=== PATIENT | male | born 1975 | race African-American/Black ===

== ENCOUNTER 2016-09-21 12:50 | Emergency (ER) | payer OTHER ==
[~2016-09-21] VITALS: Ht 182.9 cm; Wt 83.2 kg
[~2016-09-21 12:50] MED LIST: CIPRO500 MG PO
[2016-09-21] MEDS ORDERED: ASCORBIC ACID500 M3 PO (13:01)
[2016-09-21 13:30] LABS: HEMATOCRIT 38.8 % (38.0-50.0); MCH 29.6 PG (29.0-34.0); MCHC 34.5 G/DL (30.0-36.0); MCV 85.8 FL (86-99); RBC DIS.WIDTH-CV 12.8 % (11.8-14.6); RBC DIS.WIDTH-SD 40.1 % (39-53); RED BLOOD COUNT 4.52 M/uL (4.00-5.50); WHITE BLOOD COUNT 7.2 K/uL (4.1-10.2)
[2016-09-21 13:41] LABS: CHLORIDE 103 mEq/L (99-109); POTASSIUM 3.8 mEq/L (3.7-5.4); SODIUM 139 mEq/L (136-147)
[2016-09-21 13:42] LABS: GLUCOSE 99 mg/dL (70-99)
[2016-09-21 13:44] LABS: ANION GAP 10 MEQ/L (2-14); TOTAL BILIRUBIN 0.9 mg/dL (0.0-1.0)
[2016-09-21 13:46] LABS: ALKALINE PHOSPHATASE 78 IU/L (3-129); GFR ESTIMATE (CALCULATED) > 59 mL/min/
[2016-09-21 13:47] LABS: ADD MIUA? YES; BILIRUBIN NEGATIVE; BLOOD NEGATIVE; COLOR YELLOW ((YELLOW)); GLUCOSE (STRIP) NEGATIVE; KETONES NEGATIVE; LEUKOCYTES TRACE; NITRITE NEGATIVE; PROTEIN (STRIP) NEGATIVE; SPECIFIC GRAVITY 1.013 (1.000-1.030); UROBILINOGEN 0.2 MG/DL (0.2-1.0)
[2016-09-21 13:47] LABS: UREA NITROGEN (BUN) 20 mg/dL (9-23)
[2016-09-21 13:49] LABS: LIPASE 11 U/L (1.0-51.0)
[2016-09-21 13:56] LABS: BACTERIA RARE /HPF; EPITHELIAL CELLS RARE /HPF; MUCUS TRACE /LPF; RED BLOOD CELLS 0-5 /HPF (0-5); UCUL ADDED? NO; WHITE BLOOD CELLS 0-5 /HPF (0-5)
[2016-09-21 14:16] LABS: TROP-I INTERPRETATION NEGATIVE; TROPONIN-I 0.03 ng/mL (0.0-0.30)
[2016-09-21 14:30] LABS: MEAN PLAT.VOLUME 12.6 uM^3 (9.0-12.4); PLATELET COUNT 117 K/uL (156-360)
[2016-09-21] MEDS ORDERED: TRAMADOL HCL50 MG PO (15:51)
[2016-09-21] MEDS ORDERED: ZANTAC300 MG PO (15:51)
[2016-09-21] MEDS ORDERED: CARAFATE1 GM PO (15:51)
[2016-09-21 16:06] VITALS: BP 135/79
== END 2016-09-21 16:26 | disposition home or self-care (01) ==
LOC: EME → EDBD 12:50 → RME 12:50
PROVIDERS: Physician Assistant
DX: K80.50 Calculus of bile duct without cholangitis or cholecystitis without obstruction (principal)
CPT/HCPCS: 76705; 80053; 81003; 83690; 84484; 85027; 93005; 99281; 99284